=== PATIENT | female | born 1960 | race Caucasian/White ===

== ENCOUNTER → 2016-08-18 | Day surgery (SDC) | payer OTHER ==
[2016-08-03 11:39] VITALS: Ht 170.2 cm; Wt 79.5 kg
[~2016-08-18] VITALS: Ht 170.2 cm; Wt 79.5 kg
[~2016-08-18] MED LIST: AMT50 PO; ATROPINE SULFATE 0.1 MG/ML 5ML SYR IV PRN; BUPIVACAINE 0.5 % 5 MG/1 ML MPF 30ML VIAL ONE; CEFAZOLIN 2000 MG/60 ML D5W IV SCH; CELEXA PO; DEXAMETHASONE SOD INJ 4 MG/ML VIAL ONE; EpHEDrine SULFATE INJ 50 MG/ML AMP IV PRN; FENTANYL CITRATE INJ 50 MCG/1 ML 2 ML VIAL IV PRN; FENTANYL CITRATE INJ 50 MCG/1 ML 2 ML VIAL ONE; KETO10TA PO; LACTATED RINGER'S 1000ML 1,000 ML IV SCH; LIDOCAINE HCL 2% 2 ML VIAL (20MG/ML) ONE; LOESTRIN PO; MESA1.2T PO; METOPROLOL PO; MIDAZOLAM HCL 1 MG/ML 2ML VIAL ONE; OMEP20TA PO; ONDANSETRON INJ 2 MG/ML 2 ML VIAL IV PRN; ONDANSETRON INJ 2 MG/ML 2 ML VIAL ONE; OXYC-57 PO; OXYCODONE/ACETAMINOPHEN 5-325 TAB PO PRN; PROPOFOL IV EMULSION 10 MG/ML 20 ML VIAL IV ONE; SCOPOLAMINE 1.5 MG TDSY TD ONE; SODIUM CHLORIDE 0.9% 1000ML 1,000 ML IV SCH; SUMA100T16 PO; SUMA6KIT SC
--- NOTE | 2016-08-18 08:43 | History & Physical Bridge - [place] ---
H&P Re-Evaluation Bridge Note: I have examined the patient, reviewed the History & Physical and in the interval since the performance of the History & Physical I have noted the following changes of clinical significance: No changes noted
--- NOTE | 2016-08-18 11:31 | [facility] Post Operative Brief Note ---
Immediate Operative Summary Operative Date Aug 18, 2016. Pre-Operative Diagnosis Right Basilar Joint Arthritis, Right Carpal Tunnel Syndrome Post-Operative Diagnosis Same Procedure(s) Performed Right Basilar Joint Arthroplasty, Right Carpal Tunnel Release Surgeon Dr. Schumacher Employment Services Director Surgeon(s) Dennis Abdi PA-C Estimated Blood Loss 5 mL Findings as above Specimens None Complication(s) None Disposition Recovery Room / PACU
--- NOTE | 2016-08-18 11:41 | Discharge Instructions-SurgCtr ---
Discharge Instructions Visit Reason for Visit: Right Oa Cmc Joint Thumb, Carpal Tunnel Syndrome Discharge Discharge Diagnosis / Problem: SAME ABOVE Discharge Goals Goal(s): Decrease discomfort, Improve function Activity Recommendations Activity Limitations: as noted below Lifting Limitations: until after follow-up appointment Exercise/Sports Limitations: until after follow-up appointment Driving or Machine Use: MAY DRIVE WHEN NOT TAKING PAIN MEDICATION Anesthesia . Post Anesthesia Instructions: If you have had General Anesthesia or IV Sedation: * Do not drive today. * Resume driving when surgeon permits. * Do not make important decisions or sign legal documents today. * Call surgeon for: 1. Temperature elevations greater than 101 degrees F. 2. Uncontrollable pain. 3. Excessive bleeding. 4. Persistent nausea and vomiting. 5. Medication intolerance (nausea, vomiting or rash). * For nausea and vomiting use only clear liquids such as: tea, soda, bouillon until nausea subsides, then gradually increase diet as tolerated. * If you have any concerns or questions, call your surgeon's office. If physician is unavailable and it is an emergency, call 911 or go to the nearest emergency room. . Instructions / Follow-Up Instructions / Follow-Up MEDICATIONS: * Resume previous medications unless instructed otherwise by your surgeon. * Always take pain medication on a full stomach or with food to avoid upset stomach. * Do not drink alcohol or drive while taking narcotics. * Ibuprofen or Tylenol may be taken if narcotic not needed. SPECIAL CARE INSTRUCTIONS: __ None _X_ Keep extremity elevated and iced x 48 hours; apply ice 20-30 minutes 8-10 times/day. May remove at night. __ Sling __24 hrs/day __ Remove at night __ Shoulder Immobilizer __ 24 hrs/day __ Remove at night _X_ Dressing _X_ Maintain until seen in office, may shower with plastic over site __ Remove dressings in 24-48 hours and then may shower __ Cover incisions with band-aids after showering __ Do not remove steri-strips Call physician if chills or temperature rises above 102 degrees or pain unrelieved by prescribed pain medications at . . Diet Recommendations Home Diet: no limitations Fluid Restriction: None Procedures Procedures Performed: Right Basilar Joint Arthroplasty, Right Carpal Tunnel Release Pending Studies Studies pending at discharge: no Work Instructions Return To Work: after follow-up Lifting Limitations: NO LIFTING WITH RIGHT ARM Medical Emergencies . Who to Call and When: Medical Emergencies: If at any time you feel your situation is an emergency, please call 911 immediately. . Non-Emergent Contact Non-Emergency issues call your: Primary Care Provider Call Non-Emergent contact if: you have a fever, temperature is above 101.5 . . "Provider Documentation" section prepared by Ifeanyi Abdi.
--- NOTE | 2016-08-18 11:56 | Anesthesia Progress Nt - [facility] ---
Anesthesia Post Op Note Date & Time Aug 18, 2016 at 11:56 Vital Signs Pain Intensity: 0 Vital Signs Past 12 Hours Date Time Temp Pulse Resp B/P Pulse Ox O2 Delivery O2 Flow Rate FiO2 08/18/16 11:26 37.2 122 20 159/117 97 Diffusion Mask 6 08/18/16 09:17 36.9 93 16 117/84 99 Room Air Notes Mental Status: alert / awake / arousable, participated in evaluation Pt Amnestic to Procedure: Yes Nausea / Vomiting: adequately controlled Pain: adequately controlled Airway Patency, RR, SpO2: stable & adequate BP & HR: stable & adequate Hydration State: stable & adequate Anesthetic Complications: no major complications apparent
--- NOTE | 2016-08-18 12:10 | OPERATIVE REPORT ---
DATE OF OPERATION: 08/18/2016 PREOPERATIVE DIAGNOSIS: Carpometacarpal arthritis and carpal tunnel syndrome of the right wrist. POSTOPERATIVE DIAGNOSIS: Same. PROCEDURE: Right wrist CMC suspension arthroplasty with an Arthrex TightRope and open carpal tunnel release. SURGEON: Dr. Ronaldo Schumacher. TECHNICAL DEVELOPER: Thaddeus Abdi PA-C, whose assistance was necessary for positioning of the hand and helping with retraction. ANESTHESIA: General. COMPLICATIONS: None. CONDITION: Stable to PACU. INDICATIONS: Kitty is a very pleasant 56-year-old female who has been coming to my office with chronic pain in CMC joint of her right thumb. She has also been having paresthesias in her right hand. EMG and clinical examinations were diagnostic for carpal tunnel syndrome and CMC arthritis. After failing conservative treatment, she elected to undergo suspension arthroplasty as well as open carpal tunnel release. OPERATION AND FINDINGS: On 08/18/2016 she arrived at [facility] for the above procedure. She was seen in the preoperative holding area and the operative extremity was identified and signed. She was given a preoperative antibiotic, taken back to the operating room, laid on the table in supine position and put under general anesthesia. The right hand and wrist was then prepped and draped in sterile fashion. Time-out was done and the patient and operative extremity was properly identified. The CMC arthroplasty was done first. A curvilinear incision was made over the radial border of the CMC joint. Dissection was taken down through the fascia with care not to disrupt the digital nerves. Dissection was taken down to the capsule and the capsule was opened. The TightRope was placed first. A guide pin was placed from the base of the first metacarpal out through the shaft of the second metacarpal. A small incision was made on the dorsal aspect of the hand and the guidewire was advanced. A 2-0 FiberWire was looped and passed through the hole from the first metacarpal out through the second metacarpal. The Arthrex Mini TightRope was then passed through the second metacarpal and out the first metacarpal. This was done so the knot could be placed on the thumb metacarpal. The button was placed in the webspace appropriately. The button was then placed on the thumb metacarpal and tied tight. Fluoroscopic pictures were taken to ensure that it was not over tightened. The hand was able to lie flat. We were able to do full abduction and full opposition. The trapezium was then resected in piecemeal fashion. Care was taken to ensure complete resection of the trapezium. The flexor carpi radialis was left intact. The final fluoroscopic images were taken to ensure complete resection of the trapezium and appropriate tensioning of the mini TightRope. The wound was then irrigated. The capsule was closed with 3-0 Vicryl and skin was closed with 4-0 nylon suture in a mattress fashion. The dorsal incision was closed with 4-0 nylon suture. Attention was then turned to an open carpal tunnel release. The incision was made directly over the transverse carpal ligament. Dissection was taken down through the fascia and transverse carpal ligament was exposed. A knife and tenotomy scissors were then used to do a complete proximal and distal resection of the transverse carpal ligament. The wound was then irrigated and closed with 4-0 nylon suture. She was then placed in a thumb spica splint, extubated, transferred to a [facility] and taken to the postanesthesia care unit in stable condition. She tolerated the procedure well. I attest to the content of the Intraoperative Record and any orders documented therein. Any exceptio ns are noted below.
[2016-08-18 12:25] VITALS: TEMP 37.5
[2016-08-18 12:41] VITALS: BP 133/68; PULSE 89; O2SAT 98
== END | disposition home or self-care (01) ==
LOC: X.SURG 08:59
PROVIDERS: ATTEND Orthopaedic Surgery
DX: M19.031 Primary osteoarthritis, right wrist (principal); G56.01 Carpal tunnel syndrome, right upper limb; Z90.710 Acquired absence of both cervix and uterus

== ENCOUNTER → 2016-12-07 | Outpatient (CLI) | payer OTHER ==
[~2016-12-07] MED LIST changes: -ATROPINE SULFATE 0.1 MG/ML 5ML SYR IV PRN; -BUPIVACAINE 0.5 % 5 MG/1 ML MPF 30ML VIAL ONE; -CEFAZOLIN 2000 MG/60 ML D5W IV SCH; +CITA20TA9 PO; -DEXAMETHASONE SOD INJ 4 MG/ML VIAL ONE; -EpHEDrine SULFATE INJ 50 MG/ML AMP IV PRN; -FENTANYL CITRATE INJ 50 MCG/1 ML 2 ML VIAL IV PRN; -FENTANYL CITRATE INJ 50 MCG/1 ML 2 ML VIAL ONE; -LACTATED RINGER'S 1000ML 1,000 ML IV SCH; -LIDOCAINE HCL 2% 2 ML VIAL (20MG/ML) ONE; +METO25TA3 PO; -MIDAZOLAM HCL 1 MG/ML 2ML VIAL ONE; -ONDANSETRON INJ 2 MG/ML 2 ML VIAL IV PRN; -ONDANSETRON INJ 2 MG/ML 2 ML VIAL ONE; -OXYCODONE/ACETAMINOPHEN 5-325 TAB PO PRN; -PROPOFOL IV EMULSION 10 MG/ML 20 ML VIAL IV ONE; -SCOPOLAMINE 1.5 MG TDSY TD ONE; -SODIUM CHLORIDE 0.9% 1000ML 1,000 ML IV SCH
== END | disposition home or self-care (01) ==
LOC: C.PAPS 16:17
PROVIDERS: ATTEND Obstetrics & Gynecology
DX: Z01.419 Encounter for gynecological examination (general) (routine) without abnormal findings (principal)

== ENCOUNTER → 2017-06-13 | Outpatient (CLI) | payer OTHER ==
[~2017-06-13] MED LIST changes: -KETO10TA PO; -OXYC-57 PO
[2017-06-13 16:57] LABS: BASO % 0.2 %; BASO ABS # 0.01 K/uL (0-0.2); COMPLETE YES; EOS % 2.6 %; HEMATOCRIT 38.8 % (37-47); IG% 0.2 %; LYMPH % 35.1 %; LYMPH ABS # 2.14 K/uL (1.2-3.4); MEAN CELL VOLUME 93.3 fL (80-100); MEAN CORPUSCULAR HEMOGLOBIN 29.6 pg (25-34); MEAN CORPUSCULAR HGB CONC 31.7 g/dl (32-36); MEAN PLATELET VOLUME 9.2 fL (7.4-10.4); MONO % 8.5 %; NEUT % 53.4 %; PLATELET COUNT 252 K/uL (130-400); RED BLOOD COUNT 4.16 M/uL (4.2-5.4); WHITE BLOOD COUNT 6.09 K/uL (4.8-10.8)
[2017-06-13 17:04] LABS: BLOOD UREA NITROGEN 14 mg/dl (7-18); BUN/CREATININE RATIO 15.5 (10-20); CALCIUM 9.3 mg/dl (8.5-10.1); CARBON DIOXIDE 31 mmol/L (21-32); CHLORIDE 104 mmol/L (98-107); CREATININE 0.89 mg/dl (0.60-1.20); GLUCOSE 89 mg/dl (70-99); SODIUM 138 mmol/L (136-145)
== END | disposition home or self-care (01) ==
LOC: C.LABBC 15:18
PROVIDERS: ATTEND Orthopaedic Surgery
DX: M65.311 Trigger thumb, right thumb (principal)

== ENCOUNTER → 2017-07-13 | Day surgery (SDC) | payer OTHER ==
[2017-06-15 15:46] VITALS: Ht 170.2 cm; Wt 79.5 kg
[~2017-07-13] VITALS: Ht 170.2 cm; Wt 79.5 kg
[~2017-07-13] MED LIST changes: +ATROPINE SULFATE 0.1 MG/ML 5ML SYR IV PRN; +CEFAZOLIN 1000MG IV PUSH 5 ML IV SCH; -CELEXA PO; +EpHEDrine SULFATE INJ 50 MG/ML AMP IV PRN; +FENTANYL CITRATE INJ 50 MCG/1 ML 2 ML VIAL IV PRN; +FENTANYL CITRATE INJ 50 MCG/1 ML 2 ML VIAL ONE; +HYDR-5688 PO; +HYDR200T5 PO; +HYDROCODONE/ACETAMIN 5/325MG TAB PO PRN; +LACTATED RINGER'S 1000ML 1,000 ML IV SCH; +LIDOCAINE HCL 2% LOCAL 20 ML VIAL ONE; -LOESTRIN PO; +LORA-741 PO; -METOPROLOL PO; +MIDAZOLAM HCL 1 MG/ML 2ML VIAL ONE; +ONDA4TAB10 SL; +ONDANSETRON INJ 2 MG/ML 2 ML VIAL IV PRN; +ONDANSETRON INJ 2 MG/ML 2 ML VIAL ONE; +PROPOFOL IV EMULSION 10 MG/ML 20 ML VIAL IV ONE; +SODIUM CHLORIDE 0.9% 1000ML 1,000 ML IV SCH
[2017-07-13 07:20] VITALS: TEMP 36.4
--- NOTE | 2017-07-13 07:21 | Discharge Instructions-SurgCtr ---
Discharge Instructions Date of Service Jul 13, 2017. Visit Reason for Visit: Right Snapping Thumb Syndrome Discharge Discharge Diagnosis / Problem: SAME ABOVE Discharge Goals Goal(s): Decrease discomfort, Improve function Activity Recommendations Activity Limitations: as noted below Lifting Limitations: until after follow-up appointment Exercise/Sports Limitations: until after follow-up appointment Driving or Machine Use: resume 1 day after discharge Anesthesia . Post Anesthesia Instructions: If you have had General Anesthesia or IV Sedation: * Do not drive today. * Resume driving when surgeon permits. * Do not make important decisions or sign legal documents today. * Call surgeon for: 1. Temperature elevations greater than 101 degrees F. 2. Uncontrollable pain. 3. Excessive bleeding. 4. Persistent nausea and vomiting. 5. Medication intolerance (nausea, vomiting or rash). * For nausea and vomiting use only clear liquids such as: tea, soda, bouillon until nausea subsides, then gradually increase diet as tolerated. * If you have any concerns or questions, call your surgeon's office. If physician is unavailable and it is an emergency, call 911 or go to the nearest emergency room. . Instructions / Follow-Up Instructions / Follow-Up MEDICATIONS: * Resume previous medications unless instructed otherwise by your surgeon. * Always take pain medication on a full stomach or with food to avoid upset stomach. * Do not drink alcohol or drive while taking narcotics. * Ibuprofen or Tylenol may be taken if narcotic not needed. SPECIAL CARE INSTRUCTIONS: __ None _X_ Keep extremity elevated and iced x 48 hours; apply ice 20-30 minutes 8-10 times/day. May remove at night. __ Sling __24 hrs/day __ Remove at night __ Shoulder Immobilizer __ 24 hrs/day __ Remove at night _X_ Dressing __ Maintain until seen in office, may shower with plastic over site _X_ Remove dressings in 5 DAYS. MAY SHOWER IF COVERED WITH PLASTIC BAG _X_ Cover incisions with band-aids after showering __ Do not remove steri-strips Call physician if chills or temperature rises above 102 degrees or pain unrelieved by prescribed pain medications at . . Diet Recommendations Home Diet: no limitations Fluid Restriction: None Procedures Procedures Performed: Right Trigger Thumb Release Pending Studies Studies pending at discharge: no Work Instructions Return To Work: 3 days (OR WHEN ABLE TO COVER INCISION) Lifting Limitations: none (NO HEAVY GRIPPING ) Medical Emergencies . Who to Call and When: Medical Emergencies: If at any time you feel your situation is an emergency, please call 911 immediately. . Non-Emergent Contact Non-Emergency issues call your: Primary Care Provider Call Non-Emergent contact if: you have a fever, temperature is above 101.5 . . "Provider Documentation" section prepared by Ifeanyi Abdi. .
--- NOTE | 2017-07-13 07:22 | [facility] Post Operative Brief Note ---
Immediate Operative Summary Operative Date Jul 13, 2017. Pre-Operative Diagnosis Right thumb trigger finger Post-Operative Diagnosis Same as preop Procedure(s) Performed Right Trigger Thumb Release Surgeon Dr. Schumacher Network Systems Engineer Surgeon(s) Ifeanyi Abdi PA-C Estimated Blood Loss 5 mL Findings as above Specimens None Complication(s) None Disposition Recovery Room / PACU
[2017-07-13 07:48] VITALS: BP 100/68; PULSE 86; O2SAT 97
--- NOTE | 2017-07-13 07:52 | Anesthesia Progress Nt - [facility] ---
Anesthesia Post Op Note Date & Time Jul 13, 2017 at 07:52 Vital Signs Pain Intensity: 0 Vital Signs Past 12 Hours Date Time Temp Pulse Resp B/P (MAP) Pulse Ox O2 Delivery O2 Flow Rate FiO2 07/13/17 07:48 86 16 100/68 (79) 97 Room Air 07/13/17 07:20 36.4 91 16 103/69 (80) 95 Room Air 07/13/17 06:28 37.0 93 16 100/59 (73) 95 Room Air Notes Mental Status: alert / awake / arousable, participated in evaluation Pt Amnestic to Procedure: Yes Nausea / Vomiting: adequately controlled Pain: adequately controlled Airway Patency, RR, SpO2: stable & adequate BP & HR: stable & adequate Hydration State: stable & adequate Anesthetic Complications: no major complications apparent
--- NOTE | 2017-07-13 08:50 | OPERATIVE REPORT ---
DATE OF OPERATION: 07/13/2017 PREOPERATIVE DIAGNOSIS: Trigger finger of the right thumb. POSTOPERATIVE DIAGNOSIS: Same. PROCEDURE: Open right trigger thumb release. SURGEON: Dr. Ronaldo Scuhmacher. SPA SUPERVISOR: Ifeanyi Abdi PA-C, whose assistance was necessary for retraction and closure. ANESTHESIA: Local with sedation. COMPLICATIONS: None. CONDITION: Stable to PACU. INDICATIONS: Kitty is a pleasant 57-year-old female who I did a CMC arthroplasty 8 months ago. She did well with that. Unfortunately, she went on to develop triggering of her right thumb. After failing a brief course of conservative treatment, she elected to undergo an open trigger thumb release. On 07/13/2017, she arrived at [facility] for the above procedure. She was seen in the preoperative holding area and the operative extremity was identified and signed. She was given a preoperative antibiotic and taken back to the operating room, laid on the table in supine position, and given basic sedation. The right hand was then prepped and draped in sterile fashion. Time-out was done and the operative extremity was properly identified. A transverse incision was made directly in the flexor crease of the thumb. Dissection was taken down through the fascia with care not to disrupt the digital nerves. The A1 jeferson was easily identified. A knife and tenotomy scissors were then used to do a complete resection of the first jeferson of the thumb. The tendon was lifted out of the wound to ensure complete release. The wound was then irrigated and closed with 4-0 nylon suture. She was then placed in a soft dressing and taken to the postanesthesia care unit in stable condition. She tolerated the procedure well. I attest to the content of the Intraoperative Record and any orders documented therein. Any exception s are noted below.
== END | disposition home or self-care (01) ==
LOC: X.SURG 06:13
PROVIDERS: ATTEND Orthopaedic Surgery
DX: M65.311 Trigger thumb, right thumb (principal); I49.3 Ventricular premature depolarization; K21.9 Gastro-esophageal reflux disease without esophagitis; G62.9 Polyneuropathy, unspecified; Z79.899 Other long term (current) drug therapy

== ENCOUNTER 2017-10-01 16:22 | Emergency (ER) | payer OTHER ==
[~2017-10-01] VITALS: Ht 170.2 cm; Wt 82.0 kg
[~2017-10-01 16:22] MED LIST changes: -ATROPINE SULFATE 0.1 MG/ML 5ML SYR IV PRN; -CEFAZOLIN 1000MG IV PUSH 5 ML IV SCH; -EpHEDrine SULFATE INJ 50 MG/ML AMP IV PRN; -FENTANYL CITRATE INJ 50 MCG/1 ML 2 ML VIAL IV PRN; -FENTANYL CITRATE INJ 50 MCG/1 ML 2 ML VIAL ONE; -HYDR200T5 PO; -HYDROCODONE/ACETAMIN 5/325MG TAB PO PRN; -LACTATED RINGER'S 1000ML 1,000 ML IV SCH; -LIDOCAINE HCL 2% LOCAL 20 ML VIAL ONE; -LORA-741 PO; -MIDAZOLAM HCL 1 MG/ML 2ML VIAL ONE; -ONDA4TAB10 SL; -ONDANSETRON INJ 2 MG/ML 2 ML VIAL IV PRN; -ONDANSETRON INJ 2 MG/ML 2 ML VIAL ONE; -PROPOFOL IV EMULSION 10 MG/ML 20 ML VIAL IV ONE; -SODIUM CHLORIDE 0.9% 1000ML 1,000 ML IV SCH
[2017-10-01 16:32] VITALS: TEMP 36.5; Ht 170.2 cm; Wt 82.0 kg
--- NOTE | 2017-10-01 17:40 | DIAGNOSTIC IMAGING REPORT ---
L-SPINE MIN 4 VIEWS ROUTINE, SACRUM COCCYX MIN 2 VIEWS HISTORY: 57 years-old Female fall off horse acute low back pain and tailbone pain status post fall from a horse COMPARISON: None available TECHNIQUE: 5 views of the lumbar spine and 3 views of the sacrum and coccyx FINDINGS: LUMBAR SPINE: The ribs at T12 are hypoplastic. 30% anterior endplate compression deformity of the T12 vertebral body is noted without significant retropulsion identified. Cortical irregularity is noted along the superior aspect of the anterior endplate suggesting acute etiology. The remaining vertebral body heights are well-maintained and alignment is anatomic. Mild to moderate intervertebral disc space narrowing at L5-S1. Minimal multilevel endplate spurring and facet arthrosis. Soft tissues are unremarkable. Moderate stool volume of the ascending colon. SACRUM/COCCYX: There is mild apex dorsal angulation of the distal coccyx, likely developmental/chronic without evidence of acute fracture or subluxation identified on these images. The sacrum appears intact. Mild degenerative changes of the SI joints. Calcifications of the pelvis suggest phleboliths. IMPRESSION: 1. 30% anterior endplate compression deformity of the T12 vertebral body without retropulsion is age indeterminate without comparison, however is suspicious for acute injury. Correlate with point tenderness. 2. No acute fracture or subluxation identified involving the sacrum or coccyx. The above report was generated using voice recognition software. It may contain grammatical, syntax or spelling errors. Electronically signed by: Mauro Bennett M.D. 10/01/2017 5:38 PM Dictated Date/Time: 10/01/2017 5:33 PM
[2017-10-01] MEDS ORDERED: LORA-741 PO (17:53)
[2017-10-01] MEDS ORDERED: HYDR200T5 PO (17:53)
[2017-10-01] MEDS ORDERED: HYDR-5688 PO (17:56)
[2017-10-01] MEDS ORDERED: ONDA4TAB10 SL (17:58)
[2017-10-01] MEDS ORDERED: NORCO 5/325MG HOME PACK PO ONE (18:00)
[2017-10-01] MEDS ORDERED: HYDROCODONE/ACETAMIN 5/325MG TAB PO ONE (18:00)
[2017-10-01] MEDS ORDERED: ONDANSETRON HOME PACK 4MG OD TAB PO ONE (18:00)
[2017-10-01 18:22] VITALS: BP 131/87; PULSE 90; O2SAT 96
--- NOTE | 2017-10-02 14:32 | EMERGENCY ROOM VISIT NOTE ---
ED Visit Note First contact with patient: 16:41 Chief Complaint: Back pain. History of Present Illness: Ms. Kimball is a 57-year-old white female who ambulates into the ED accompanied by her complaining of lumbar and sacral back pain. Historically patient denies any previous significant back disease or surgeries. Patient reports approximately 1 hour ago she was riding her horse and she was thrown off her horse and onto the ground. When she landed she landed on her buttocks. She reports she initially had pain in the upper lumbar area and in the sacral area. Since that time the pain has been constant. Currently she describes her pain as a sharp sensation and places her discomfort in the L1-L2 area and over the sacrum. Her sacral pain is slightly radiating into the buttocks but not down the legs. She rates her discomfort 7/10. Her pain worsens with palpation and flexion and extension of the waist. She has not identified any alleviating factors related to the pain. She has not taken any medications for pain prior to arrival at the hospital. She reports at the time of the fall she did not strike her head or have a loss of consciousness, since the fall she is not having any neurological symptoms, abdominal pain, nausea, vomiting, she is not urinated or moved her bowels since the fall, she denies lower extremity weakness/numbness/tingling. Review of Systems: As noted above in history of present illness. 8 body systems were reviewed and found to be negative as noted above. Past Medical History: Endometriosis, rectal bleeding, kidney stones, migraine headache. Current Medications: Medications Dose Route/Sig Max Daily Dose Days Date Category Dose Instructions Ativan (Lorazepam) 0.5 Mg Tab 0.5 Mg PO TID PRN 10/01/17 Reported Plaquenil (Hydroxychloroquine Sulfate) 200 Mg Tab 200 Mg PO BID 10/01/17 Reported Toprol-Xl (Metoprolol Succinate) 25 Mg Tabcr 25 Mg PO HS 06/15/17 Reported Celexa (Citalopram Hydrobromide) 20 Mg Tab 20 Mg PO QAM 06/15/17 Reported Omeprazole 20 Mg Tab 1 Tab PO HS 08/03/16 Reported Elavil (Amitriptyline HCl) 50 Mg Tab 50 Mg PO HS 08/03/16 Reported Lialda (Mesalamine) 1.2 Gm Tab 1 Tab PO TID 08/03/16 Reported Imitrex Statdose (Sumatriptan Succinate) 6 Mg/0.5 Ml Inj 1 Dose SC UD PRN 08/03/16 Reported Imitrex (Sumatriptan Succinate) 100 Mg Tab 100 Mg PO UD PRN 08/03/16 Reported Allergies to Medications: Patient denies. Social History: Patient is currently employed; she feels safe in her home environment; she denies tobacco and alcohol use. Physical Examination: Vital Signs: Date Time Temp Pulse Resp B/P (MAP) Pulse Ox O2 Delivery O2 Flow Rate FiO2 10/01/17 18:22 90 18 131/87 96 10/01/17 16:32 36.5 100 18 125/83 98 Room Air GENERAL: 57-year-old female in mild to moderate distress due to pain, nontoxic- appearing, afebrile and hemodynamically stable. NEUROLOGICAL: Awake, alert and oriented to person, place and time. Answering questions appropriately and following commands. SKIN: Warm, dry and pink. No soft tissue trauma noted. HEENT: Atraumatic and normocephalic. BACK: No tenderness over the bony cervical spine. Full range of motion of the cervical spine. Moderate tenderness in the T12-L1 area of the bony spine without palpable deformity, swelling or ecchymosis. Mild tenderness over the upper sacral area without bony deformity or tenderness. No tenderness over the coccyx. Decreased range of motion at the waist due to pain. Negative straight leg raise test. No palpable paraspinous muscle spasms or tenderness. No CVA tenderness. THORAX: Lungs sounds are clear to auscultation and equal bilaterally with symmetrical chest wall. ABDOMEN: Flat, soft and nontender. Positive bowel sounds in all quadrants. No guarding, rigidity or organomegaly. LOWER EXTREMITIES: No gross bony deformity. No shortening or malrotation. No tenderness in the hips, thighs, lower legs, ankles or feet. Full range of motions in the hips, ankles, knees and feet. Distal pulses are equal bilaterally. Patient is able to distinguish light sensations to all dermatomes. 5/5 muscle strength in flexion extension, internal and external rotation of the hips, plantarflexion and dorsiflexion of the ankles. ED Course: Patient is assessed as noted above. Patient's medication list was reviewed. Patient was given 1 [place] 5/325 mg tablet by mouth for pain. Lumbar Spine X-Rays: Were read by myself and shows a 30 anterior endplate compression deformity of the T12 vertebral body without retropulsion of indeterminate age. Sacrum/Coccyx X-Rays: Were read by myself and the radiologist and shows no fractures or subluxations. Patient was educated about today's findings and instructed on her treatment plan ; she verbalized understanding and agreement with this plan. Clinical Impression: Compression fracture of the T12 vertebral body. Disposition: Patient discharged home in stable condition accompanied by her ; prior to departure she was reassessed and subjectively reported she was feeling better and rated her discomfort 5/10. Plan: Comfort measures were discussed with the patient including rest, sliding pain medication of ibuprofen, acetaminophen and [place]; her name was checked in the state database and no red flags were noted and she was given appropriate narcotic precautions, and ice. Patient was encouraged to follow-up with Dr. Barclay, back surgeon, for definitive care and treatment. Patient was encouraged to return the ED for worsening/uncontrolled pain, abdominal pain, nausea, vomiting, fevers, lower extremity weakness/numbness/ tingling, bowel and bladder dysfunction or any new/concerning symptoms.
== END 2017-10-01 18:09 | disposition home or self-care (01) ==
LOC: C.EDB 16:23 → C.EDD 18:09
DX: S22.080A Wedge compression fracture of T11-T12 vertebra, initial encounter for closed fracture (principal); Y93.52 Activity, horseback riding; V80.010A Animal-rider injured by fall from or being thrown from horse in noncollision accident, initial encounter; Z87.442 Personal history of urinary calculi; Z79.899 Other long term (current) drug therapy